=== PATIENT | male | born 1940 | race Caucasian/White ===

== ENCOUNTER 2022-09-28 08:59 | Emergency (ER) | payer OTHER ==
[~2022-09-28] VITALS: Ht 177.8 cm; Wt 74.8 kg
[2022-09-28 09:00] VITALS: BP_SYST 112
--- NOTE | 2022-09-28 09:00 | NUR ---
Placed in room 06 . Placed on cardiac cath tech, blood pressure machine and pulse oximeter. To gown for exam. Side rails up. Report given to MARIANNE ARTHUR.
--- NOTE | 2022-09-28 09:10 | NUR ---
PT BIBA AWAke AND CONFUSED, AOX1. NO SOB. PT COMING FROM [facility]. PT PREVIOUSLY DX WITH UTI. PT HAS HX OF HLD, DM2, GERD, DEMENTIA.
--- NOTE | 2022-09-28 09:15 | NUR ---
MD DR CALVIN At bedside
[2022-09-28] MEDS ORDERED: NACL 0.9% 1,000 ML IV ONE (09:30)
[2022-09-28] MEDS ORDERED: PSEU30TA36 PO (09:43)
[2022-09-28] MEDS ORDERED: ASPI-1393 PO (09:43)
[2022-09-28] MEDS ORDERED: LIP10 PO (09:43)
[2022-09-28] MEDS ORDERED: PSYL575P22 PO (09:43)
[2022-09-28] MEDS ORDERED: ALBU90AE INH (09:43)
[2022-09-28] MEDS ORDERED: NEOM30OI34 TP (09:43)
[2022-09-28] MEDS ORDERED: ESOM40CA53 PO (09:43)
[2022-09-28] MEDS ORDERED: FEXO180T94 PO (09:43)
[2022-09-28] MEDS ORDERED: DUTA0.5C PO (09:43)
[2022-09-28] MEDS ORDERED: SYN50 PO (09:43)
[2022-09-28] MEDS ORDERED: MOM PO (09:43)
[2022-09-28] MEDS ORDERED: DONE10TA44 PO (09:43)
[2022-09-28] MEDS ORDERED: METF-379 PO (09:43)
[2022-09-28] MEDS ORDERED: ACET325T53 PO (09:43)
[2022-09-28] MEDS ORDERED: TAMS-11 PO (09:43)
[2022-09-28] MEDS ORDERED: DIPH50CA38 PO (09:43)
[2022-09-28] MEDS ORDERED: POLY17PO4 PO (09:43)
[2022-09-28] MEDS ORDERED: DOCU-144 PO (09:43)
[2022-09-28] MEDS ORDERED: MEMA10TA PO (09:43)
--- NOTE | 2022-09-28 09:43 | NUR ---
Medication reconciliation completed with information provided by [facility]. Any prior medication reconciliation on file was reviewed and corrected.
[2022-09-28 09:49] LABS: BASOPHILS % (AUTO) 0.1 % (0.0-2.0); EOSINOPHILS # (AUTO) 0.1 K/uL (0.0-0.4); EOSINOPHILS % (AUTO) 0.7 % (0.0-4.0); HEMATOCRIT 40.9 % (36-54); HEMOGLOBIN 13.4 g/dL (14.0-18.0); LYMPHOCYTES # (AUTO) 0.6 K/uL (1.0-5.5); LYMPHOCYTES % (AUTO) 4.3 % (20.5-51.5); MEAN CORPUSCULAR HEMOGLOBIN 30 pg (27-31); MEAN CORPUSCULAR HGB CONC 33 % (32-36); MEAN CORPUSCULAR VOLUME 91 fL (79.0-98.0); MONOCYTES # (AUTO) 0.9 K/uL (0.0-1.0); MONOCYTES % (AUTO) 6.1 % (1.7-9.3); NEUTROPHILS # (AUTO) 12.9 K/uL (1.8-7.7); NEUTROPHILS % (AUTO) 88.8 % (40.0-70.0); PLATELET COUNT (AUTO) 155 K/uL (130-430); RED BLOOD CELL COUNT(AUTO) 4.51 MIL/uL (4.2-6.2); RED CELL DISTRIBUTION WIDTH 15.7 % (9.0-15.0); WHITE BLOOD COUNT (AUTO) 14.5 K/uL (4.8-10.8)
[2022-09-28 10:01] LABS: ANION GAP 9 (5-15); CALCIUM 8.6 mg/dL (8.4-11.0); CHLORIDE 102 mmol/L (98-107); GLUCOSE 125 mg/dL (70-99); UREA NITROGEN, BLOOD 15 mg/dL (8-21)
[2022-09-28 10:05] LABS: ALANINE AMINOTRANSFERASE 16 U/L (12-78); ALBUMIN 3.6 g/dL (3.4-4.8); ASPARTATE AMINOTRANSFERASE 15 U/L (10-37); TOTAL BILIRUBIN 1.1 mg/dL (0.0-1.0)
[2022-09-28 10:22] LABS: BILIRUBIN,URINE NEGATIVE (NEGATIVE); COLOR,URINE YELLOW (YELLOW); GLUCOSE,URINE NEGATIVE (NEGATIVE); KETONES,URINE NEGATIVE (NEGATIVE); LEUKOCYTE ESTERASE ,URINE NEGATIVE (NEGATIVE); NITRITE, URINE NEGATIVE (NEGATIVE); PH,URINE 7.5 (5.0-8.0); PROTEIN URINE 1+ (NEGATIVE)
[2022-09-28 10:23] LABS: BLOOD, URINE TRACE (NEGATIVE); CLARITY/URINE SLIGHTLY HAZY (CLEAR)
[2022-09-28 10:39] LABS: BACTERIA,URINE FEW /HPF (None Seen); RBC,URINE 0-3 /HPF (0-3)
[2022-09-28 10:40] LABS: MUCUS,URINE 1+ /LPF (None Seen)
[2022-09-28] MEDS ORDERED: cefTRIAXone 1 GM in LIDOCAINE 1%, 20 ML MDV 2.1 ML IM ONE (11:45)
[2022-09-28] MEDS ORDERED: NITR-80 PO (12:05)
[2022-09-28 12:59] VITALS: BP_SYST 135
--- NOTE | 2022-09-28 13:00 | NUR ---
Patient given written and verbal discharge instructions and verbalizes understanding. ER MD DR CALVIN discussed with patient the results and treatment provided. Patient in stable condition. ID arm band removed. IV catheter removed intact and dressing applied, no active bleeding. Patient educated on pain management and to follow up with PMD. Pain Scale 0/10. Opportunity for questions provided and answered. Medication side effect fact sheet provided.
== END 2022-09-28 13:00 | disposition home or self-care (01) ==
LOC: SED 08:59
DX: N39.0 Urinary tract infection, site not specified (principal); R53.1 Weakness; E78.5 Hyperlipidemia, unspecified; Z79.899 Other long term (current) drug therapy
CPT/HCPCS: 99285; 96360; 71045; 80053; 81000; 85025; 87040; 87086; 36415; 93005; 96372; 83605; J0696; J2001; J7030

== ENCOUNTER 2023-01-18 07:57 | Inpatient (IN) | payer OTHER, MEDICARE ==
[~2023-01-18] VITALS: Ht 172.7 cm; Wt 78.5 kg
[~2023-01-18 07:57] MED LIST: ACET325T53 PO; ALBU90AE INH; ASPI-1393 PO; DIPH50CA38 PO; DOCU-144 PO; DONE10TA44 PO; DUTA0.5C PO; ESOM40CA53 PO; FEXO180T94 PO; LIP10 PO; MEMA10TA PO; METF-379 PO; MOM PO; NEOM30OI34 TP; NITR-80 PO; POLY17PO4 PO; PSEU30TA36 PO; PSYL575P22 PO; SYN50 PO; TAMS-11 PO
[2023-01-18 08:00] VITALS: BP_SYST 105; PULSE 59; RESP 20; TEMP 98.3; O2SAT 98
[2023-01-18 08:30] LABS: BASOPHILS # (AUTO) 0.1 K/uL (0.0-0.2); BASOPHILS % (AUTO) 2.2 % (0.0-2.0); EOSINOPHILS # (AUTO) 0.3 K/uL (0.0-0.4); EOSINOPHILS % (AUTO) 6.3 % (0.0-4.0); HEMATOCRIT 36.5 % (36-54); HEMOGLOBIN 11.9 g/dL (14.0-18.0); LYMPHOCYTES # (AUTO) 1.2 K/uL (1.0-5.5); LYMPHOCYTES % (AUTO) 21.7 % (20.5-51.5); MEAN CORPUSCULAR HEMOGLOBIN 30 pg (27-31); MEAN CORPUSCULAR HGB CONC 33 % (32-36); MEAN CORPUSCULAR VOLUME 92 fL (79.0-98.0); MONOCYTES # (AUTO) 0.3 K/uL (0.0-1.0); MONOCYTES % (AUTO) 6.4 % (1.7-9.3); NEUTROPHILS # (AUTO) 3.4 K/uL (1.8-7.7); NEUTROPHILS % (AUTO) 63.4 % (40.0-70.0); PLATELET COUNT (AUTO) 164 K/uL (130-430); RED BLOOD CELL COUNT(AUTO) 3.95 MIL/uL (4.2-6.2); RED CELL DISTRIBUTION WIDTH 15.7 % (9.0-15.0); WHITE BLOOD COUNT (AUTO) 5.4 K/uL (4.8-10.8)
[2023-01-18] MEDS ORDERED: PANTOPRAZOLE SODIUM 40 MG/VIAL (PROTONIX) IVP ONE (08:30)
[2023-01-18 08:43] LABS: INR 1.2 (0.80-1.20); PROTHROMBIN TIME 11.9 SECS (9.5-12.5)
[2023-01-18 08:45] LABS: ALANINE AMINOTRANSFERASE 64 U/L (12-78); ALBUMIN 3.4 g/dL (3.4-4.8); ANION GAP 8 (5-15); ASPARTATE AMINOTRANSFERASE 16 U/L (10-37); CALCIUM 8.9 mg/dL (8.4-11.0); CARBON DIOXIDE 26 mmol/L (23-29); CHLORIDE 104 mmol/L (98-107); CREATININE 1.25 mg/dL (0.55-1.30); GLUCOSE 147 mg/dL (74-106); POTASSIUM 3.7 mmol/L (3.5-5.1); SODIUM SERUM 138 mmol/L (136-145); TOTAL BILIRUBIN 0.6 mg/dL (0.0-1.0); TOTAL PROTEIN, SERUM 6.7 g/dL (6.4-8.3); UREA NITROGEN, BLOOD 16 mg/dL (8-21)
[2023-01-18 08:46] LABS: BILIRUBIN,URINE NEGATIVE (NEGATIVE); BLOOD, URINE 3+ (NEGATIVE); CLARITY/URINE SLIGHTLY HAZY (CLEAR); COLOR,URINE YELLOW (YELLOW); GLUCOSE,URINE TRACE (NEGATIVE); KETONES,URINE NEGATIVE (NEGATIVE); LEUKOCYTE ESTERASE ,URINE NEGATIVE (NEGATIVE); NITRITE, URINE NEGATIVE (NEGATIVE); PROTEIN URINE 3+ (NEGATIVE)
[2023-01-18 08:53] LABS: BACTERIA,URINE MODERATE /HPF (None Seen); RBC,URINE 20-50 /HPF (0-3); WBC,URINE 0-3 /HPF (0-3)
[2023-01-18] MEDS ORDERED: [UNRECOGNIZED DRUG - OTHER] PO (09:17)
[2023-01-18] MEDS ORDERED: MELA10CA PO (09:17)
[2023-01-18] MEDS ORDERED: CHOL20009 PO (09:17)
[2023-01-18] MEDS ORDERED: ALBU90AE INH (09:17)
[2023-01-18] MEDS ORDERED: [UNRECOGNIZED DRUG - CODE] PO (09:19)
[2023-01-18] MEDS ORDERED: PIPERACILLIN/TAZO 3.375 GM in NS 50 ML IV ONE (09:45)
[2023-01-18] MEDS: D5/0.45 NS 1,000 ML IV SCH ×2 (09:56→22:20)
[2023-01-18] MEDS ORDERED: PIPERACILLIN/TAZOBACTAM 3.375 GM/VIAL (ZOSYN) IV ONE (10:05)
[2023-01-18] MEDS ORDERED: IPRATROPIUM BROM 0.5 MG/2.5 ML VIAL.NEB (ATROVENT) INH PRN (10:45)
[2023-01-18] MEDS ORDERED: MORPHINE 4 MG INJ. 4 MG/ML VIAL IVP PRN (10:45)
[2023-01-18] MEDS ORDERED: INSULIN REGULAR, HUMAN 100 UNITS/ML, 3 ML VIAL (humuLIN R) SUBCUT PRN (10:45)
[2023-01-18] MEDS ORDERED: LORazepam 2 MG/ML VIAL IVP PRN (10:45)
[2023-01-18] MEDS ORDERED: ONDANSETRON HCL 4 MG/2 ML VIAL IVP PRN (10:45)
[2023-01-18] MEDS ORDERED: MORPHINE 2 MG/ML INJ. SYRINGE IVP PRN (10:45)
[2023-01-18] MEDS ORDERED: NALOXONE HCL 0.4 MG/ML AMP (NARCAN) IVP PRN (10:45)
[2023-01-18] MEDS ORDERED: ALBUTEROL SULFATE 0.083% 2.5 MG/3 ML VIAL.NEB INH PRN (10:45)
[2023-01-18] MEDS ORDERED: DEXTROSE 50%-WATER 50 ML DISP.SYRIN IVP PRN (11:30)
[2023-01-18] MEDS ORDERED: GLUCOSE (DEXTROSE) ORAL GEL -Adults PO PRN (11:30)
[2023-01-18] MEDS ORDERED: D5W 1,000 ML IV PRN (11:30)
[2023-01-18 12:10] VITALS: BP_SYST 119; PULSE 52; RESP 18; TEMP 98.7; O2SAT 99
[2023-01-18] MEDS: cefTRIAXone 1 GM IVPB PREMIX 50 ML IV SCH (13:36)
[2023-01-18 13:54] VITALS: O2SAT 99
[2023-01-18 16:37] VITALS: BP_SYST 122; PULSE 63; RESP 18; TEMP 98; O2SAT 95
[2023-01-18 20:00] VITALS: BP_SYST 136; PULSE 53; RESP 16; TEMP 98.2; O2SAT 95
[2023-01-19] VITALS (8 sets, daily range): BP systolic 126–132; PULSE 48–62; RESP 16; TEMP 96.5–97.7; O2SAT 95–98
[2023-01-19 05:23] LABS: BASOPHILS # (AUTO) 0.1 K/uL (0.0-0.2); BASOPHILS % (AUTO) 1.3 % (0.0-2.0); EOSINOPHILS # (AUTO) 0.4 K/uL (0.0-0.4); EOSINOPHILS % (AUTO) 6.9 % (0.0-4.0); HEMATOCRIT 32.7 % (36-54); HEMOGLOBIN 10.8 g/dL (14.0-18.0); LYMPHOCYTES # (AUTO) 1.1 K/uL (1.0-5.5); MEAN CORPUSCULAR HEMOGLOBIN 30 pg (27-31); MEAN CORPUSCULAR HGB CONC 33 % (32-36); MEAN CORPUSCULAR VOLUME 92 fL (79.0-98.0); MONOCYTES # (AUTO) 0.4 K/uL (0.0-1.0); MONOCYTES % (AUTO) 7.8 % (1.7-9.3); NEUTROPHILS # (AUTO) 3.2 K/uL (1.8-7.7); PLATELET COUNT (AUTO) 138 K/uL (130-430); RED BLOOD CELL COUNT(AUTO) 3.58 MIL/uL (4.2-6.2); RED CELL DISTRIBUTION WIDTH 15.7 % (9.0-15.0); WHITE BLOOD COUNT (AUTO) 5.1 K/uL (4.8-10.8)
[2023-01-19 05:40] LABS: ANION GAP 8 (5-15); CALCIUM 8.4 mg/dL (8.4-11.0); CARBON DIOXIDE 26 mmol/L (23-29); CHLORIDE 105 mmol/L (98-107); GLUCOSE 105 mg/dL (74-106); POTASSIUM 3.3 mmol/L (3.5-5.1); SODIUM SERUM 139 mmol/L (136-145); UREA NITROGEN, BLOOD 10 mg/dL (8-21)
[2023-01-19] MEDS: D5/0.45 NS 1,000 ML IV SCH ×3 (06:50→20:02)
[2023-01-19] MEDS ORDERED: POLYETHYLENE GLYCOL 3350, 17 GM/ POWD.PACK PO ONE (10:30)
[2023-01-19] MEDS ORDERED: MINERAL OIL 133 ML ENEMA RC ONE (10:45)
[2023-01-19] MEDS: cefTRIAXone 1 GM IVPB PREMIX 50 ML IV SCH (13:44)
[2023-01-19] MEDS: SENNA 8.8 MG/5 ML UDC GT SCH (21:26)
[2023-01-20] VITALS (7 sets, daily range): BP systolic 118–148; PULSE 52–84; RESP 14–18; TEMP 97–98; O2SAT 97–98
[2023-01-20 05:54] LABS: BASOPHILS # (AUTO) 0.1 K/uL (0.0-0.2); BASOPHILS % (AUTO) 1.7 % (0.0-2.0); EOSINOPHILS # (AUTO) 0.5 K/uL (0.0-0.4); EOSINOPHILS % (AUTO) 8.9 % (0.0-4.0); HEMATOCRIT 35.4 % (36-54); HEMOGLOBIN 11.7 g/dL (14.0-18.0); LYMPHOCYTES # (AUTO) 1.4 K/uL (1.0-5.5); LYMPHOCYTES % (AUTO) 28.1 % (20.5-51.5); MEAN CORPUSCULAR HEMOGLOBIN 30 pg (27-31); MEAN CORPUSCULAR HGB CONC 33 % (32-36); MEAN CORPUSCULAR VOLUME 92 fL (79.0-98.0); MONOCYTES # (AUTO) 0.4 K/uL (0.0-1.0); MONOCYTES % (AUTO) 8.8 % (1.7-9.3); NEUTROPHILS # (AUTO) 2.7 K/uL (1.8-7.7); NEUTROPHILS % (AUTO) 52.5 % (40.0-70.0); PLATELET COUNT (AUTO) 143 K/uL (130-430); RED BLOOD CELL COUNT(AUTO) 3.85 MIL/uL (4.2-6.2); RED CELL DISTRIBUTION WIDTH 15.5 % (9.0-15.0); WHITE BLOOD COUNT (AUTO) 5.1 K/uL (4.8-10.8)
[2023-01-20 06:15] LABS: ALANINE AMINOTRANSFERASE 13 U/L (12-78); ALBUMIN 3.2 g/dL (3.4-4.8); ANION GAP 8 (5-15); ASPARTATE AMINOTRANSFERASE 17 U/L (10-37); CALCIUM 8.8 mg/dL (8.4-11.0); CARBON DIOXIDE 26 mmol/L (23-29); CHLORIDE 106 mmol/L (98-107); CREATININE 1.01 mg/dL (0.55-1.30); GLUCOSE 94 mg/dL (74-106); POTASSIUM 3.6 mmol/L (3.5-5.1); SODIUM SERUM 140 mmol/L (136-145); TOTAL BILIRUBIN 0.5 mg/dL (0.0-1.0); TOTAL PROTEIN, SERUM 6.3 g/dL (6.4-8.3); UREA NITROGEN, BLOOD 8 mg/dL (8-21)
[2023-01-20 06:16] LABS: ERYTHROCYTE SEDIMENTATION RATE 18 MM/HR (0-15)
[2023-01-20] MEDS: POLYETHYLENE GLYCOL 3350, 17 GM/ POWD.PACK PO SCH (08:14)
[2023-01-20] MEDS: cefTRIAXone 1 GM IVPB PREMIX 50 ML IV SCH (12:00)
[2023-01-20] MEDS: D5/0.45 NS 1,000 ML IV SCH ×2 (12:05→18:57)
[2023-01-20] MEDS: SENNA 8.8 MG/5 ML UDC GT SCH (21:00)
[2023-01-21 00:07] VITALS: BP_SYST 116; PULSE 59; RESP 14; TEMP 97.1; O2SAT 96
[2023-01-21] MEDS: D5/0.45 NS 1,000 ML IV SCH (06:23)
[2023-01-21 06:24] LABS: BASOPHILS # (AUTO) 0.2 K/uL (0.0-0.2); BASOPHILS % (AUTO) 3.1 % (0.0-2.0); EOSINOPHILS # (AUTO) 0.3 K/uL (0.0-0.4); EOSINOPHILS % (AUTO) 6.8 % (0.0-4.0); HEMATOCRIT 36.3 % (36-54); HEMOGLOBIN 11.7 g/dL (14.0-18.0); LYMPHOCYTES # (AUTO) 1.1 K/uL (1.0-5.5); LYMPHOCYTES % (AUTO) 22.3 % (20.5-51.5); MEAN CORPUSCULAR HEMOGLOBIN 30 pg (27-31); MEAN CORPUSCULAR HGB CONC 32 % (32-36); MEAN CORPUSCULAR VOLUME 92 fL (79.0-98.0); MONOCYTES # (AUTO) 0.5 K/uL (0.0-1.0); MONOCYTES % (AUTO) 9.2 % (1.7-9.3); NEUTROPHILS % (AUTO) 58.6 % (40.0-70.0); PLATELET COUNT (AUTO) 146 K/uL (130-430); RED BLOOD CELL COUNT(AUTO) 3.95 MIL/uL (4.2-6.2); RED CELL DISTRIBUTION WIDTH 15.8 % (9.0-15.0); WHITE BLOOD COUNT (AUTO) 5.1 K/uL (4.8-10.8)
[2023-01-21 06:38] LABS: ERYTHROCYTE SEDIMENTATION RATE 18 MM/HR (0-15)
[2023-01-21 06:39] LABS: ANION GAP 8 (5-15); CALCIUM 8.7 mg/dL (8.4-11.0); CARBON DIOXIDE 27 mmol/L (23-29); CHLORIDE 106 mmol/L (98-107); CREATININE 1.08 mg/dL (0.55-1.30); GLUCOSE 96 mg/dL (74-106); POTASSIUM 3.5 mmol/L (3.5-5.1); SODIUM SERUM 141 mmol/L (136-145); UREA NITROGEN, BLOOD 9 mg/dL (8-21)
[2023-01-21 08:00] VITALS: BP_SYST 128; PULSE 54; RESP 18; TEMP 97.9; O2SAT 98
[2023-01-21] MEDS: POLYETHYLENE GLYCOL 3350, 17 GM/ POWD.PACK PO SCH (08:51)
[2023-01-21] MEDS: cefTRIAXone 1 GM IVPB PREMIX 50 ML IV SCH (11:13)
[2023-01-21 11:30] VITALS: BP_SYST 107; PULSE 61; RESP 18; TEMP 98.1; O2SAT 96
[2023-01-21] MEDS ORDERED: MAG-AL HYDROX/SIMETH 30 ML UDC PO PRN (14:15)
[2023-01-21] MEDS ORDERED: PSEUDOEPHEDRINE HCL 30 MG TABLET PO PRN (14:15)
[2023-01-21] MEDS ORDERED: ACETAMINOPHEN 325 MG TABLET PO PRN ×2 (14:15→14:30)
[2023-01-21] MEDS ORDERED: NEOMY SULF/BACITRAC ZN/POLY 28 GM OINT..GM. TP SCH (14:15)
[2023-01-21 16:23] VITALS: BP_SYST 116; PULSE 60; RESP 17; TEMP 98.4; O2SAT 97
[2023-01-21 16:34] VITALS: BP_SYST 116; PULSE 60; RESP 17; TEMP 98.4; O2SAT 97
[2023-01-21] MEDS ORDERED: MELATONIN 5 MG TABLET PO SCH (21:00)
[2023-01-21] MEDS ORDERED: DOCUSATE SODIUM 100 MG CAPSULE PO SCH (21:00)
[2023-01-21] MEDS ORDERED: MEMANTINE HCL 5 MG TABLET PO SCH (21:00)
[2023-01-21] MEDS ORDERED: ATORVASTATIN 10 MG TABLET PO SCH (21:00)
[2023-01-21] MEDS ORDERED: DONEPEZIL HCL 5 MG TABLET (ARICEPT) PO SCH (21:00)
[2023-01-21] MEDS ORDERED: NON-FORMULARY MEDICATION (Melatonin 10 MG) PO SCH (21:00)
[2023-01-22] MEDS ORDERED: LEVOTHYROXINE SODIUM 0.05 MG TABLET PO SCH (07:00)
[2023-01-22] MEDS ORDERED: PSYLLIUM HUSK 1 PKT PACKET PO SCH (09:00)
[2023-01-22] MEDS ORDERED: NON-FORMULARY MEDICATION (Esomeprazole Magnesium 40 MG) PO SCH (09:00)
[2023-01-22] MEDS ORDERED: metFORMIN HCL 500 MG TABLET PO SCH (09:00)
[2023-01-22] MEDS ORDERED: TAMSULOSIN HCL 0.4 MG CAP PO SCH (09:00)
[2023-01-22] MEDS ORDERED: [UNRECOGNIZED DRUG - OTHER] PO SCH (09:00)
[2023-01-22] MEDS ORDERED: DUTASTERIDE 0.5 MG CAPSULE (AVODART) PO SCH (09:00)
[2023-01-22] MEDS ORDERED: PSYLLIUM HUSK PO SCH (09:00)
[2023-01-22] MEDS ORDERED: ALBUTEROL SULFATE 108 MCG INH SCH (09:00)
[2023-01-22] MEDS ORDERED: MILK OF MAGNESIA 30 ML UDC PO SCH (09:00)
[2023-01-22] MEDS ORDERED: [UNRECOGNIZED DRUG - OTHER] PO SCH (09:00)
[2023-01-22] MEDS ORDERED: CHOLECALCIFEROL (VITAMIN D3) 2,000 UNIT TABLET PO SCH (09:00)
[2023-01-22] MEDS ORDERED: NON-FORMULARY MEDICATION (Fexofenadine Hcl (Allegra Allergy) 1 TAB) PO SCH (09:00)
[2023-01-22] MEDS ORDERED: ASPIRIN 81 MG TABLET(ECOTRIN) PO SCH (09:00)
[2023-01-22] MEDS ORDERED: PANTOPRAZOLE SODIUM 40 MG TAB PO SCH (09:00)
[2023-01-23] MEDS ORDERED: POLYETHYLENE GLYCOL 3350, 17 GM/ POWD.PACK PO SCH (09:00)
== END 2023-01-21 17:35 | disposition home health service (06) | DRG 378 ==
LOC: SED 07:57 → STU 09:35
PROVIDERS: ADMIT Preventive Medicine Preventive Medicine/Occupational Environmental Medicine; ATTEND Preventive Medicine Preventive Medicine/Occupational Environmental Medicine
DX: K92.1 Melena (principal); E44.0 Moderate protein-calorie malnutrition; E87.20 Acidosis, unspecified; F02.818 Dementia in other diseases classified elsewhere, unspecified severity, with other behavioral disturbance; N39.0 Urinary tract infection, site not specified; R78.81 Bacteremia; K92.2 Gastrointestinal hemorrhage, unspecified; E03.9 Hypothyroidism, unspecified; G30.9 Alzheimer's disease, unspecified; J44.9 Chronic obstructive pulmonary disease, unspecified; I10 Essential (primary) hypertension; E78.00 Pure hypercholesterolemia, unspecified; K21.9 Gastro-esophageal reflux disease without esophagitis; G47.00 Insomnia, unspecified; E55.9 Vitamin D deficiency, unspecified; R31.29 Other microscopic hematuria; B95.8 Unspecified staphylococcus as the cause of diseases classified elsewhere; K59.00 Constipation, unspecified; D64.9 Anemia, unspecified; E11.9 Type 2 diabetes mellitus without complications; N40.0 Benign prostatic hyperplasia without lower urinary tract symptoms; E88.09 Other disorders of plasma-protein metabolism, not elsewhere classified; Z79.82 Long term (current) use of aspirin; Z79.899 Other long term (current) drug therapy; Z68.26 Body mass index [BMI] 26.0-26.9, adult
CPT/HCPCS: 36415; 70450-TC; 71045; 74018; 76376; 80048; 80053; 81000; 82272; 82962; 83605; 83880; 84484; 85025; 85610-TC; 85651-TC; 85730-TC; 87040; 87081; 87086; 87186-TC; 93005; 94760; 96365; 96375; 97110-GP; 97116-GP; 97530-GP; 99285; C9113; G0378; J0696; J2543